=== PATIENT | male | born 1955 | race Caucasian/White ===

== ENCOUNTER 2018-05-29 16:29 | Observation (INO) | payer OTHER ==
[~2018-05-29] VITALS: Ht 175.3 cm; Wt 90.7 kg
[~2018-05-29 16:29] MED LIST: CITA20 PO; FENO145 PO; HYDACE5 PO; HYDCHL25 PO; METO50ER PO; NAPR500 PO
[2018-05-29 17:25] LABS: BASOPHILS ABSOLUTE AUTO 0.03 K/mm3 (0.00-0.23); BASOPHILS PERCENT AUTO 0 % (0-2); EOSINOPHILS ABSOLUTE AUTO 0.04 K/mm3 (0.00-0.68); EOSINOPHILS PERCENT AUTO 0 % (0-6); Hematocrit 42.9 % (37.0-53.0); Hemoglobin 12.9 g/dL (13.5-17.5); IMMATURE GRAN ABSOLUTE AUTO 0.05 K/mm3 (0.00-0.10); IMMATURE GRAN PERCENT AUTO 1 % (0-1); LYMPHOCYTES ABSOLUTE AUTO 0.97 K/mm3 (0.84-5.20); LYMPHOCYTES PERCENT AUTO 10 % (21-46); MONOCYTES ABSOLUTE AUTO 0.86 K/mm3 (0.16-1.47); MONOCYTES PERCENT AUTO 9 % (4-13); Mean Corpuscular HGB 21.5 pg (26.0-34.0); Mean Corpuscular HGB Conc 30.1 g/dL (31.5-36.5); Mean Corpuscular Volume 72 fL (80-100); Mean Platelet Volume 9.6 fL (9.1-12.4); NEUTROPHILS ABSOLUTE AUTO 7.98 K/mm3 (1.96-9.15); NEUTROPHILS PERCENT AUTO 80 % (41-73); Platelet Count 161 K/mm3 (150-400); RDW Coefficient Variation 18.7 % (11.7-14.2); RDW Standard Deviation 45.8 fL (35.1-46.3); White Blood Cell Count 9.93 K/mm3 (4.00-11.30)
[2018-05-29 17:40] LABS: International Normalized Ratio 1.04
[2018-05-29 17:48] LABS: Alanine Aminotransfer (ALT/SGP 34 U/L (12-78); Albumin, Blood 3.6 g/dL (3.4-5.0); Albumin/Globulin Ratio 1.3 (0.8-1.8); Alk Phos 128 U/L (50-136); Anion Gap 10 mmol/L (6-16); Aspartate Aminotrans (AST/SGOT 20 U/L (12-37); Bilirubin, Total 0.5 mg/dL (0.1-1.0); Blood Urea Nitrogen 11 mg/dL (8-24); Bun/Creatinine Ratio 12.8 (12.0-20.0); CO2, Blood 28 mmol/L (21-32); Calcium, Blood 8.5 mg/dL (8.5-10.1); Chloride, Blood 97 mmol/L (98-108); Creatinine, Blood 0.86 mg/dL (0.60-1.20); Ethanol (Alcohol), Blood, Med <3 mg/dL; Globulin, Blood 2.7 g/dL (2.2-4.0); Glomerular Filtration Rate >60 (60-); Glucose, Blood 98 mg/dL (70-99); Potassium, Blood 3.8 mmol/L (3.5-5.5); Sodium, Blood 135 mmol/L (136-145); Total Protein, Blood 6.3 g/dL (6.4-8.2)
[2018-05-29 20:26] LABS: U Amphetamine Screen Not Detected; U Barbituate Screen Not Detected; U Benzodiazapine Screen Not Detected; U Buprenorphine Screen Not Detected; U Cannabinoids Screen Not Detected; U Cocaine Screen Not Detected; U Methadone Screen Not Detected; U Methamphetamine Screen Not Detected; U Opiates Screen Not Detected; U Oxycodone Screen Not Detected; U Phencyclidine Screen Not Detected; U Propoxyphene Screen Not Detected
[2018-05-29 20:30] LABS: Source, Urine Catheter
[2018-05-29 20:35] LABS: Bilirubin, Urine Neg (Neg); Blood, Urine Neg (Neg); Glucose Qualitative, Urine Neg (Neg); Ketones, Urine 1+ (Neg); Leukocyte Esterase, Urine 1+ (Neg); Nitrite, Urine Neg (Neg); Protein, Urine 1+ (Neg); Urobilinogen, Urine 1+ (Normal); pH, Urine 6.5 (5.0-8.0)
[2018-05-29 20:41] LABS: Appearance, Urine Clear (Clear); Bacteria Mod /hpf; Color, Urine Yellow (P-Yellow); Red Blood Cells, Urine 0-2 /hpf (0-2); Squamous Epithelial Cells Not Seen /hpf (Few); White Blood Cells, Urine 0-2 /hpf (0-5)
[2018-05-29 20:42] LABS: Hyaline Casts 0-2 /lpf (0-2); Mucus Light (0-Heavy)
--- NOTE | 2018-05-30 00:02 | NUR ---
REPORT TAKEN FROM MURALI WOO IN ED. PT ARRIVED TO THE UNIT VIA STRETCHER. PT ALERT, ORIENTED TO SELF, AND NOT AWARE THAT HE IS IN THE HOSPITAL. PT SUSPICIOUS OF HIS CAREGIVERS, RESISTANT TO CARE, 3 STAFF MEMBERS REQUIRED TO GET HIM INTO A HOSPITAL GOWN. PT REFUSING/UNABLE TO ANSWER QUESTIONS AT THIS TIME. PT HAS A 20G L HAND, WRAPPED IN GREEN KOB[place], PT PULLING AT THE GREEN DRESSING AT THIS TIME. WILL CONTINUE TO MONITOR.
[2018-05-30 05:10] LABS: Hematocrit 40.3 % (37.0-53.0); Hemoglobin 11.6 g/dL (13.5-17.5); Mean Corpuscular HGB 20.7 pg (26.0-34.0); Mean Corpuscular HGB Conc 28.8 g/dL (31.5-36.5); Mean Corpuscular Volume 72 fL (80-100); Mean Platelet Volume 9.9 fL (9.1-12.4); Platelet Count 140 K/mm3 (150-400); RDW Standard Deviation 46.7 fL (35.1-46.3); Red Blood Cell Count 5.61 M/mm3 (4.30-5.90); White Blood Cell Count 6.41 K/mm3 (4.00-11.30)
[2018-05-30 05:42] LABS: Anion Gap 8 mmol/L (6-16); Blood Urea Nitrogen 14 mg/dL (8-24); Bun/Creatinine Ratio 14.7 (12.0-20.0); CO2, Blood 30 mmol/L (21-32); Calcium, Blood 8.1 mg/dL (8.5-10.1); Chloride, Blood 100 mmol/L (98-108); Creatinine, Blood 0.95 mg/dL (0.60-1.20); Glomerular Filtration Rate >60 (60-); Glucose, Blood 103 mg/dL (70-99); Potassium, Blood 3.4 mmol/L (3.5-5.5); Sodium, Blood 138 mmol/L (136-145)
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
--- NOTE | 2018-05-30 19:44 | NUR ---
PT UP AND DRESSED IN STREET CLOTHES THIS MORNING. PHYSICAL THERAPY WORKED WITH HIM THIS MORNING. PT ABLE TO AMBULATE IN [facility] ON HIS OWN WITHOUT DIFFICULTY, REMAINS CONFUSED AND HAS AN EXTREMELY SHORT TERM MEMORY. WILL CONTINUE TO MONITOR AND REPORT TO ONCOMING RN.
[2018-05-31 05:17] LABS: Hematocrit 46.3 % (37.0-53.0); Hemoglobin 13.2 g/dL (13.5-17.5); Mean Corpuscular HGB Conc 28.5 g/dL (31.5-36.5); Mean Corpuscular Volume 74 fL (80-100); Mean Platelet Volume 10.3 fL (9.1-12.4); Platelet Count 187 K/mm3 (150-400); RDW Coefficient Variation 19.4 % (11.7-14.2); RDW Standard Deviation 48.3 fL (35.1-46.3); Red Blood Cell Count 6.29 M/mm3 (4.30-5.90); White Blood Cell Count 8.07 K/mm3 (4.00-11.30)
[2018-05-31 05:37] LABS: Anion Gap 9 mmol/L (6-16); Blood Urea Nitrogen 23 mg/dL (8-24); CO2, Blood 28 mmol/L (21-32); Calcium, Blood 8.8 mg/dL (8.5-10.1); Chloride, Blood 103 mmol/L (98-108); Creatinine, Blood 1.21 mg/dL (0.60-1.20); Glomerular Filtration Rate >60 (60-); Glucose, Blood 115 mg/dL (70-99); Sodium, Blood 140 mmol/L (136-145)
--- NOTE | 2018-05-31 06:01 | NUR ---
CARISSA MORAN SUMMARY PT HAS BEEN MOSTLY PLEASANT AND AGGREABLE WITH CARE THIS NIGHT. ORIENTED TO SELF. HAS BEEN CONFUSED AND UNSURE OF WHERE HE IS. OFTEN WANTING TO LEAVE UNIT. HE IS TALKATIVE AND HAS BEEN AWAKE MOST OF THE NIGHT. RESP EVEN AND UNLABORED, STEADY GATE. NO REQUESTS AT THIS TIME. WILL CONTINUE TO MONITOR.
[2018-05-31] MEDS ORDERED: ACET325 PO (15:33)
[2018-05-31] MEDS ORDERED: POTCHL10ER PO (15:33)
[2018-05-31] MEDS ORDERED: Lisinopril2.5 MG PO (15:33)
--- NOTE | 2018-05-31 16:00 | NUR ---
DISCHARGE INSTRUCTIONS COMPLETED AND DISCUSSED WITH PT AND HIS BROTHER AYAH. SCRIPTS FAXED TO [facility]. EXPRESSED CLEARLY TO PT AND ON DISCHARGE PAPERWORK THAT PT IS TO NOT DRIVE ANYMORE AND DMV PAPERWORK GIVEN TO BROTHER WELL NO MORE DRINKING ALCOHOL. TO [facility] VIA W/C.
== END 2018-05-31 15:50 | disposition home or self-care (01) ==
LOC: ER 16:29 → MEDS 16:30
PROVIDERS: Family Medicine; Nurse Practitioner Acute Care; Physician Assistant; ADMIT Hospitalist
DX: G93.40 Encephalopathy, unspecified (principal); F17.200 Nicotine dependence, unspecified, uncomplicated; I10 Essential (primary) hypertension; Q04.9 Congenital malformation of brain, unspecified; Z79.899 Other long term (current) drug therapy; Z79.01 Long term (current) use of anticoagulants
CPT/HCPCS: 36415; 51701; 70450; 71045; 80048; 80053; 81001; 82140; 82607; 83605; 83735; 83880; 84146; 84443; 85025; 85027; 85610; 86592; 87086; 93005; 93010; 96372; 96374; 97112; 97161; 99285-25; G0378; G0480; J1650; J2060